=== PATIENT | female | born 1955 | race Caucasian/White ===

== ENCOUNTER → 2016-11-26 | Outpatient (CLI) | payer BC ==
[~2016-11-26] MED LIST: ATARAX 25MG25 MG/TAB PO; CIPRO 250MG TA250 MG PO; FLOMAX 0.40.4 MG/CAP PO; FLUOXETINE; GLUCOSAMINE & C1 CA2 PO; HORMONES; MULTIPLE VITAMI1 CAP PO; MULTIPLE VITAMI1 TAB PO; MVI; NORCO 325 MG-51 TAB PO; PEN-VEE K500 MG PO; PREDNISONE10 MG; PROZAC 10MG10 MG PO; PYRIDIUM 100MG100 MG PO; SENOKOT S 50 MG1 TAB PO
== END ==
LOC: COL.RAD 13:42
DX: N20.0 Calculus of kidney (principal); R31.29 Other microscopic hematuria
CPT/HCPCS: Q9967

== ENCOUNTER 2016-11-30 11:38 | Day surgery (SDC) | payer BC ==
[~2016-11-30] VITALS: Ht 162.6 cm; Wt 71.4 kg
[~2016-11-30 11:38] MED LIST changes: -CIPRO 250MG TA250 MG PO; -FLOMAX 0.40.4 MG/CAP PO; -GLUCOSAMINE & C1 CA2 PO; -MULTIPLE VITAMI1 CAP PO; -NORCO 325 MG-51 TAB PO; -PROZAC 10MG10 MG PO; -PYRIDIUM 100MG100 MG PO; -SENOKOT S 50 MG1 TAB PO
[2016-11-30 13:03] VITALS: BP 137/66; PULSE 72; TEMP 97.3
[2016-11-30] MEDS ORDERED: FLOMAX 0.40.4 MG/CAP PO (13:10)
[2016-11-30] MEDS ORDERED: CIPRO 250MG TA250 MG PO (13:10)
[2016-11-30] MEDS ORDERED: MULTIPLE VITAMI1 CAP PO (13:11)
[2016-11-30] MEDS ORDERED: PROZAC 10MG10 MG PO (13:11)
[2016-11-30] MEDS ORDERED: GLUCOSAMINE & C1 CA2 PO (13:12)
[2016-11-30 14:40] VITALS: BP 120/67; PULSE 78; TEMP 98.1
[2016-11-30 14:55] VITALS: BP 124/77; PULSE 80
[2016-11-30 15:10] VITALS: BP 119/69; PULSE 71
[2016-11-30] MEDS ORDERED: SENOKOT S 50 MG1 TAB PO (15:11)
[2016-11-30] MEDS ORDERED: NORCO 325 MG-51 TAB PO (15:11)
[2016-11-30] MEDS ORDERED: PYRIDIUM 100MG100 MG PO (15:12)
[2016-11-30 15:25] VITALS: BP 118/64; PULSE 70
== END 2016-11-30 15:40 | disposition home or self-care (01) ==
LOC: SDCO 11:38
DX: N20.1 Calculus of ureter (principal); I10 Essential (primary) hypertension; Z87.442 Personal history of urinary calculi; Z79.899 Other long term (current) drug therapy
CPT/HCPCS: C1769; C2617; J0690; J1100; J1885; J2405; J2704; J3010; J7120; Q9967

== ENCOUNTER → 2018-03-03 | Outpatient (CLI) | payer BC ==
[~2018-03-03] MED LIST changes: +CIPRO 250MG TA250 MG PO; +FLOMAX 0.40.4 MG/CAP PO; +GLUCOSAMINE & C1 CA2 PO; +MULTIPLE VITAMI1 CAP PO; +NORCO 325 MG-51 TAB PO; +PROZAC 10MG10 MG PO; +PYRIDIUM 100MG100 MG PO; +SENOKOT S 50 MG1 TAB PO
== END ==
LOC: MC.RAD 08:59
DX: Z12.31 Encounter for screening mammogram for malignant neoplasm of breast (principal); N63.10 Unspecified lump in the right breast, unspecified quadrant

== ENCOUNTER 2018-08-27 11:11 | Emergency (ER) | payer BC ==
[~2018-08-27] VITALS: Ht 162.6 cm; Wt 70.5 kg
[2018-08-27 11:13] VITALS: TEMP 99.6
[2018-08-27 11:32] LABS: COLLECTION METHOD CLEAN CATCH
[2018-08-27 11:40] LABS: PH 8 (5-8); SQUAMOUS EPITHELIAL None Seen /hpf; URINE APPEARANCE Clear; URINE BACTERIA Rare /hpf; URINE BILIRUBIN Negative (NEGATIVE); URINE BLOOD Negative (NEGATIVE); URINE COLOR Yellow; URINE GLUCOSE Negative (NEGATIVE); URINE KETONE Negative (NEGATIVE); URINE LEUKOCYTE ESTERASE Negative (NEGATIVE); URINE NITRATE Negative (NEGATIVE); URINE PROTEIN(semi-quant) Negative (NEGATIVE); URINE UROBILINOGEN Negative (NEGATIVE)
[2018-08-27 11:46] LABS: HEMATOCRIT 39.9 % (37.0-47.0); MEAN CELL VOLUME 93 fl (80.0-100.0); MEAN CORPUSCULAR HEMOGLOBIN 30 pg (27.0-31.0); MEAN CORPUSCULAR HGB CONC 33 g/dl (33.0-37.0); MEAN PLATELET VOLUME 10.4 fl (7.4-10.4); PLATELET COUNT 190 K/mm3 (130-400); RED BLOOD COUNT 4.31 M/mm3 (4.10-5.30); REDCELL DISTRIBUTION WIDTH-CV 12.5 % (11.5-14.5)
[2018-08-27 11:59] LABS: ALBUMIN 3.7 gm/dL (3.5-5.0); BILIRUBIN,TOTAL 0.7 mg/dL (0.0-1.0); CALCIUM 9.4 mg/dL (8.4-10.2); CREATININE, serum 0.75 mg/dL (0.52-1.25); TOTAL PROTEIN 6.1 gm/dL (6.4-8.2)
[2018-08-27 12:10] LABS: BAND 15 % (0-10); LYMPHOCYTE 2 % (20.0-51.0); NEUTROPHILS 82 % (42.0-75.2)
[2018-08-27 12:11] LABS: PLATELET ESTIMATE NORMAL (NORMAL)
[2018-08-27] MEDS ORDERED: FLOMAX 0.40.4 MG/CAP PO (13:44)
[2018-08-27] MEDS ORDERED: NORCO 325 MG-51 TAB PO (13:44)
[2018-08-27 13:59] VITALS: BP 123/88; PULSE 72
== END 2018-08-27 13:59 | disposition home or self-care (01) ==
LOC: COL.ER 11:11
PROVIDERS: Family Medicine
DX: N20.2 Calculus of kidney with calculus of ureter (principal)
CPT/HCPCS: J1885; J2405; J7030; Q9967

== ENCOUNTER → 2019-03-03 | Outpatient (CLI) | payer BC ==
[~2019-03-03] MED LIST changes: +ZESTRIL 20MG TA20 MG PO
== END ==
LOC: COL.RAD 13:50
DX: N20.2 Calculus of kidney with calculus of ureter (principal)

== ENCOUNTER 2019-03-06 15:13 | Day surgery (SDC) | payer BC ==
[~2019-03-06] VITALS: Ht 162.6 cm; Wt 62.1 kg
[~2019-03-06 15:13] MED LIST changes: -ZESTRIL 20MG TA20 MG PO
[2019-03-06 15:51] VITALS: BP 122/64; PULSE 77; TEMP 97.8
[2019-03-06] MEDS ORDERED: ZESTRIL 20MG TA20 MG PO (16:01)
--- NOTE | 2019-03-06 16:02 | NUR ---
TO RM AT 1530 - CALL LIGHT IN REACH AT BEDSIDE.
[2019-03-06 17:55] VITALS: BP 139/68; PULSE 59; TEMP 97.4
--- NOTE | 2019-03-06 17:55 | NUR ---
Pt arrived to floor at this time via cart with OR staff. Able to ambulate independently to bathroom, urinated a pink clear urine, strained and no signs of a stone in place. Pt has no pain, no nausea, oriented, askin for food, VSS. Will continue to monitor.
[2019-03-06 18:10] VITALS: BP 138/72; PULSE 64; TEMP 97.4
[2019-03-06 18:20] VITALS: BP 126/71; PULSE 64
--- NOTE | 2019-03-06 18:21 | NUR ---
Pt discharge packet given and reviewed. Pt received pakcet, took script home, and will be back shortly. Pt resting quietly in bed, tolerated jello, ice water, has no nausea, no pain. Pt will be leaving with all belongings, to drive home, criteria met.
== END 2019-03-06 18:35 | disposition home or self-care (01) ==
LOC: SDCO 15:13
DX: N20.2 Calculus of kidney with calculus of ureter (principal); I10 Essential (primary) hypertension; Z87.442 Personal history of urinary calculi; Z88.2 Allergy status to sulfonamides; Z79.899 Other long term (current) drug therapy; Z80.52 Family history of malignant neoplasm of bladder; Z82.49 Family history of ischemic heart disease and other diseases of the circulatory system; Z84.1 Family history of disorders of kidney and ureter; Z90.49 Acquired absence of other specified parts of digestive tract; G47.33 Obstructive sleep apnea (adult) (pediatric); F32.9 Major depressive disorder, single episode, unspecified
CPT/HCPCS: C1769; C2617; J0690; J1100; J1885; J2405; J2704; J3010; J7120; Q9967

== ENCOUNTER 2019-03-13 12:40 | Day surgery (SDC) | payer BC ==
[~2019-03-13] VITALS: Ht 162.6 cm; Wt 61.6 kg
[~2019-03-13 12:40] MED LIST changes: +ZESTRIL 20MG TA20 MG PO
[2019-03-13 13:11] VITALS: BP 109/56; PULSE 73; TEMP 98.6
--- NOTE | 2019-03-13 13:20 | NUR ---
TO RM 8 AT 12:48- CALL LIGHT IN REACH AT BEDSIDE.
[2019-03-13 15:21] VITALS: TEMP 99
[2019-03-13 15:40] VITALS: BP 106/55; PULSE 67
--- NOTE | 2019-03-13 15:40 | NUR ---
TO RM8 PER CART FROM PACU. ALERT ORIENTED X3, TALKING TO STAFF AND . DENIES PAIN OR DISCOMFORT. DENIES NAUSEA /VOMITING. RECEIVED WATER AND TOLERATING WELLL.
[2019-03-13] MEDS ORDERED: NORCO 325 MG-51 TAB PO (15:51)
[2019-03-13 15:55] VITALS: BP 105/53; PULSE 67
--- NOTE | 2019-03-13 16:10 | NUR ---
ATE 100% JELLO AND TOLERATED WELL. EAGER TO GO HOME.
--- NOTE | 2019-03-13 16:15 | NUR ---
RECEIVED DISCHARGE INSTRUCTIONS AND VERBALIZED UNDERSTANDING DISCONTINUED IV AND INT- CATHETER INTACT.
--- NOTE | 2019-03-13 16:29 | NUR ---
DISCHARGED PER WC BY NURSING STAFF TO PRIVATE CAR IN CARE OF .
== END 2019-03-13 16:34 | disposition home or self-care (01) ==
LOC: SDCO 12:40
DX: N20.1 Calculus of ureter (principal); I10 Essential (primary) hypertension; G47.33 Obstructive sleep apnea (adult) (pediatric); Z88.2 Allergy status to sulfonamides; Z80.52 Family history of malignant neoplasm of bladder; Z84.1 Family history of disorders of kidney and ureter; Z82.49 Family history of ischemic heart disease and other diseases of the circulatory system
CPT/HCPCS: C1769; C2617; J0690; J1885; J2405; J2704; J3010; J7120

== ENCOUNTER → 2019-07-21 | Outpatient (CLI) | payer BC | LOC: MC.RAD 07:39 | DX: Z12.31 Encounter for screening mammogram for malignant neoplasm of breast (principal) ==

== ENCOUNTER → 2020-09-09 | Outpatient (CLI) | payer BC | LOC: MC.RAD 14:30 | DX: Z12.31 Encounter for screening mammogram for malignant neoplasm of breast (principal) ==

== ENCOUNTER → 2022-01-23 | Outpatient (CLI) | payer BC | LOC: MC.RAD 10-31 08:30 | DX: Z12.31 Encounter for screening mammogram for malignant neoplasm of breast (principal) ==

== ENCOUNTER → 2023-03-03 | Outpatient (CLI) | payer MEDICARE | LOC: MC.RAD 13:39 | DX: Z12.31 Encounter for screening mammogram for malignant neoplasm of breast (principal); N63.10 Unspecified lump in the right breast, unspecified quadrant ==

== ENCOUNTER → 2024-06-15 | Outpatient (CLI) | payer MEDICARE, BC | LOC: MC.RAD 13:19 | DX: Z12.31 Encounter for screening mammogram for malignant neoplasm of breast (principal) ==